=== PATIENT | male | born 1930 | race Caucasian/White ===

== ENCOUNTER 2018-02-19 08:43 | Day surgery (SDC) | payer MEDICARE, MEDICAID ==
[~2018-02-19] VITALS: Ht 177.8 cm; Wt 73.6 kg
--- NOTE | ~2018-02-19 | OP ---
PATIENT NAME: TRENTON MAE MEDICAL RECORD: [id number] :[birth year] [facility] DATE: SURGEON: ADDY POE DO DATE OF OPERATION: 02/19/2018 PROCEDURE: Colonoscopy with biopsies and stool collection. INDICATIONS FOR PROCEDURE: Diarrhea and lower abdominal pain. SCOPE: Mobi[employer] video pediatric colonoscope. MEDICATIONS: Propofol 50 mg IV per anesthesia. WITHDRAWAL TIME: 11 minutes. ESTIMATED BLOOD LOSS: Minimal. COMPLICATIONS: None. FINDINGS: Informed consent was given. The patient was made comfortable with the above medication. After reaching an adequate level of sedation by slow IV push, the patient was placed on his left side. A digital rectal examination was performed and was normal. The endoscope was then advanced under direct visualization through the rectum to the terminal ileum. The scope was slowly withdrawn. Mucosa was carefully examined. The prep quality was fair. There were no polyps visualized on today's examination. There were a few scattered small mouth diverticula without evidence of diverticulitis. The patient has had a prior intervention in the form of a colon resection. His ileocecal valve was intact, but this was located at approximately 50 cm from the anal verge. The anastomotic site appeared normal without ulcers or other abnormalities. The visualized terminal ileum appeared normal. Retroflexion was performed in the rectum with visualization of grade I internal hemorrhoids without bleeding. During the procedure, stool was collected to submit for ruling out infectious reasons for his diarrhea. Random biopsies were taken of normal colonic mucosa to exclude microscopic colitis as a cause of his diarrhea. The endoscope was then completely withdrawn from the patient. The patient tolerated the procedure well and there were no complications. IMPRESSION: 1. Prior intervention in the form of a colon resection. 2. Mild diverticulosis. 3. Grade I internal hemorrhoids without bleeding. PLAN AND RECOMMENDATIONS: 1. Discharge home when recovery parameters are met. 2. Follow up biopsy specimen results. 3. Continue current diet. 4. Continue current medications. 5. We will give a trial of Cholestyramine 4 grams b.i.d. for suspected bile salt induced diarrhea or diarrhea due to loss of a significant amount of colon length. 6. Continue Imodium as needed. 7. We will treat accordingly if there is presence of infection or microscopic colitis. 8. No further colonoscopies necessary based on the patient's age and overall OPERATIVE REPORT [id number] [facility]. TRANSINT:[id number] Voice Confirmation ID: [id number] DOCUMENT ID: [id number] ADDY POE DO at 1524 CC: [id number] DICTATION DATE: 02/19/18 1034 [employer] HAND: 02/19/18 1251 [facility] 02/19/18 [place] [id number] [place] [id number]
[2018-02-19 09:54] VITALS: BP 125/63; Ht 177.8 cm; Wt 73.6 kg
[2018-02-19 09:58] LABS: BASOPHILS 0.5 % (0-2); EOSINOPHILS 3.1 % (0-7); HEMATOCRIT 36.8 % (42.0-54.0); HEMOGLOBIN 11.7 g/dL (13.5-17.5); IMMATURE GRANULOCYTES 0.2 % (0-5); LYMPHOCYTES 26.4 % (15-50); MCH 27.8 pg (26.0-34.0); MCHC 31.8 g/dL (31.0-37.0); MCV 87.4 fL (80.0-100.0); MEAN PLATELET VOLUME 8.6 fL (7.4-10.4); MONOCYTES 8.6 % (2-11); NEUTROPHILS 61.2 % (40-80); PLATELET COUNT 188 10x3/uL (130-400); RBC 4.21 10x6/uL (4.20-6.10); WBC 6.4 10x3/uL (4.8-10.8)
[2018-02-19 10:28] LABS: ANION GAP 16.2 mmol/L (8-16); CALCIUM 9.7 mg/dL (8.5-10.1); CARBON DIOXIDE 27.1 mmol/L (21.0-32.0); CREATININE - SERUM 1.9 mg/dL (0.6-1.3); POTASSIUM - SERUM 4.3 mmol/L (3.5-5.1)
== END 2018-02-19 11:50 | disposition home or self-care (01) ==
LOC: D.OPS 08:43
PROVIDERS: Anesthesiology
DX: R10.9 Unspecified abdominal pain (principal); R19.7 Diarrhea, unspecified; I10 Essential (primary) hypertension; E11.9 Type 2 diabetes mellitus without complications; M06.9 Rheumatoid arthritis, unspecified; Z01.812 Encounter for preprocedural laboratory examination; K57.30 Diverticulosis of large intestine without perforation or abscess without bleeding; K64.8 Other hemorrhoids

== ENCOUNTER 2018-02-26 09:10 | Day surgery (SDC) | payer MEDICARE, MEDICAID ==
[~2018-02-26] VITALS: Ht 177.8 cm; Wt 73.6 kg
--- NOTE | ~2018-02-26 | OP ---
PATIENT NAME: TRENTON MAE MEDICAL RECORD: [id number] :[birth year] [facility]: SURGEON: ADDY POE DO DATE OF OPERATION: 02/26/2018 PROCEDURE: EGD with biopsies. INDICATION FOR PROCEDURE: Dysphagia, epigastric pain, nausea. SCOPE: Olympus video gastroscope. MEDICATIONS: Propofol 35 mg IV per anesthesia. ESTIMATED BLOOD LOSS: Minimal. COMPLICATIONS: None. FINDINGS: Informed consent was given. The patient was made comfortable with the above medication. After reaching an adequate level of sedation by slow IV push, the patient was placed on her left side. The endoscope was advanced under direct visualization through the mouth to the second portion of the duodenum. The upper, middle, and lower thirds of the esophagus appeared normal. There was no evidence of strictures, rings, webs, or other findings to explain the patient's dysphagia. The GE junction also appeared normal. The endoscope was advanced beyond the GE junction into the stomach and retroflexed to view the cardia, where a small sliding hiatal hernia was present. Throughout the fundus, body, and antrum of the stomach, there were patchy areas of erythema and granularity consistent with possible gastritis. At the pylorus, there was a single, superficial ulceration without signs of bleeding or bleeding stigmata. The ulcer measured approximately 1.3 cm in diameter. The endoscope was advanced beyond the pylorus into the duodenum where bulb, first portion, and second portion of the duodenum appeared normal. The endoscope was withdrawn back into the stomach, where the ulcer was biopsied with cold forceps and random biopsies were performed in the stomach with cold forceps to submit for histopathology and to rule out H. pylori. The endoscope was withdrawn from the patient. The patient tolerated the procedure well and there were no complications. IMPRESSION: 1. Small sliding hiatal hernia. 2. Patchy gastritis. 3. A single, superficial gastric ulcer involving prepyloric and pyloric channel. PLAN AND RECOMMENDATIONS: 1. Discharge home when recovery parameters are met. 2. Followup biopsy specimen results. 3. Discontinue pantoprazole and start Nexium 40 mg daily. 4. Increase Carafate to four times daily times 2 weeks, then decrease back down to twice daily use. 5. We will treat for H. pylori if indicated from results of biopsy specimen. 6. Repeat EGD as needed. 7. Barium esophagram regarding ongoing dysphagia. 8. Can consider manometry study if dysphagia persists despite medical treatment. OPERATIVE REPORT [id number] TRENTON MAE TRANSINT:[id number] Voice Confirmation ID: [id number] DOCUMENT ID: [id number] ADDY POE DO at 1524 CC: [id number] DICTATION DATE: 02/26/18 1527 [place]: 02/26/18 1623 [facility] 02/26/18 [place] [id number] [place] [id number]
[2018-02-26] MEDS ORDERED: JANUMET 50-5001 TAB PO (09:59)
[2018-02-26] MEDS ORDERED: NEURONTIN 300300 MG PO (09:59)
[2018-02-26] MEDS ORDERED: COREG 3.1253.125 MG PO (10:00)
[2018-02-26] MEDS ORDERED: CARAFATE1 G PO (10:00)
[2018-02-26] MEDS ORDERED: INVOKANA100 MG PO (10:00)
[2018-02-26] MEDS ORDERED: BAYER ASPIRIN325 MG PO (10:01)
[2018-02-26] MEDS ORDERED: ISOSORBIDE MONO30 M1 PO (10:02)
[2018-02-26] MEDS ORDERED: PROTONIX40 MG PO (10:02)
[2018-02-26] MEDS ORDERED: ARICEPT5 MG PO (10:03)
[2018-02-26] MEDS ORDERED: FENOFIBRATE160 MG PO (10:05)
[2018-02-26] MEDS ORDERED: ZOCOR40 MG PO (10:05)
[2018-02-26] MEDS ORDERED: FLOMAX0.4 MG PO (10:06)
[2018-02-26] MEDS ORDERED: ULTRAM50 MG PO (10:07)
[2018-02-26] MEDS ORDERED: NAMENDA5 MG PO (10:07)
[2018-02-26 10:19] VITALS: BP 118/76; Ht 177.8 cm; Wt 73.6 kg
[2018-02-26 11:15] LABS: BASOPHILS 0.2 % (0-2); EOSINOPHILS 2.9 % (0-7); HEMATOCRIT 35.3 % (42.0-54.0); HEMOGLOBIN 11.4 g/dL (13.5-17.5); IMMATURE GRANULOCYTES 0.3 % (0-5); LYMPHOCYTES 23.2 % (15-50); MCH 28.1 pg (26.0-34.0); MCHC 32.3 g/dL (31.0-37.0); MCV 87.2 fL (80.0-100.0); MEAN PLATELET VOLUME 9.6 fL (7.4-10.4); MONOCYTES 8.1 % (2-11); NEUTROPHILS 65.3 % (40-80); PLATELET COUNT 202 10x3/uL (130-400); RBC 4.05 10x6/uL (4.20-6.10); RDW 13.9 % (11.5-14.5); WBC 5.9 10x3/uL (4.8-10.8)
[2018-02-26 12:19] LABS: ANION GAP 11.1 mmol/L (8-16); CALCIUM 9.6 mg/dL (8.5-10.1); CARBON DIOXIDE 28.4 mmol/L (21.0-32.0); CREATININE - SERUM 1.7 mg/dL (0.6-1.3); POTASSIUM - SERUM 4.5 mmol/L (3.5-5.1)
[2018-02-26] MEDS ORDERED: NEXIUM40 MG (15:55)
== END 2018-02-26 16:35 | disposition home or self-care (01) ==
LOC: D.OPS 09:10
PROVIDERS: Anesthesiology
DX: R13.10 Dysphagia, unspecified (principal); R10.13 Epigastric pain; K29.70 Gastritis, unspecified, without bleeding; K25.9 Gastric ulcer, unspecified as acute or chronic, without hemorrhage or perforation; I25.10 Atherosclerotic heart disease of native coronary artery without angina pectoris; I10 Essential (primary) hypertension; E11.9 Type 2 diabetes mellitus without complications; F03.90 Unspecified dementia, unspecified severity, without behavioral disturbance, psychotic disturbance, mood disturbance, and anxiety; K21.9 Gastro-esophageal reflux disease without esophagitis; Z01.812 Encounter for preprocedural laboratory examination